=== PATIENT | male | born 1975 | race Caucasian/White ===

== ENCOUNTER 2016-08-17 15:23 | Emergency (ER) | payer OTHER ==
[2016-08-17 15:45] VITALS: BP 150/111
[2016-08-17] MEDS ORDERED: NAPROXEN SODIUM 550 MG TABLET PO ONE (16:46)
[2016-08-17] MEDS ORDERED: NAPROXEN SODIUM 550 MG TABLET ONE (16:50)
--- OUTSIDE RECORDS SUMMARY | 2016-08-17 16:55 | XMS REPORT | Continuity of Care Document ---
:1975 Author Organization [facility] ([facility]) [place] [address] Phone [phone] Care Team Providers Name Role Phone Odell Acevedo Primary Care Provider [phone] Source Comments This disclosure is being made pursuant to the Care Everywhere program, applicable federal and state laws, and may not contain all informaitonavailable regarding this patient.[facility] ([facility]) Active Allergies and Adverse Reactions Not on File Current Medications Not on file Active Problems Not on file Most Recent Encounters Date Type Specialty Providers Description 08/07/2016 Office Visit Orthopaedic Bubba Chavez MD Chief Comp: Patient Reported Reason For Visit 08/04/2016 Telephone Orthopaedic Bubba Chavez MD Chief Comp: Other Social History Tobacco Use Types Packs/Day Years Used Date Never Assessed Plan of Care Date Type Specialty Providers Description 09/08/2016 Appointment Orthopaedic Bubba Chavez MD Chief Comp: Patient [address] [place] [address] [phone] (Fax) Health Maintenance Due Date Last Done Comments Hepatitis B Vaccine (1 of 3 - Primary Series) 1975 Tdap Vaccine 1984 Lipid Disorder Screening 1991 MMR Vaccine 1991 Td Vaccine 1991 Influenza Vaccine: Seasonal (#1) 01/13/2016 Results from Last 3 Months Not on file
--- NOTE | 2016-08-17 16:59 | ERNOTE ---
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 No significant pain at rest but with any little movement, no other associated symptoms Date (Duration): 08/15/16 Timing: intermittent Modifying Factors - (Improves): Present: rest Modifying Factors - (Worsens): Present: movement Review of Systems - Review of Systems Constitutional: Absent: fever, chills ENT: Absent: nose congestion, sore throat Respiratory: Absent: shortness of breath, cough Cardiology: Absent: chest pain Gastrointestinal/Abdominal: Absent: nausea, vomiting, abdominal pain Genitourinary: Present: no symptoms reported Musculoskeletal: Present: See HPI, muscle pain. Absent: back pain Skin: Absent: rash Neurological: Absent: weakness, numbness - Patient's Past Medical History Patient History - Medical: No pertinent hx Patient History - Cardiac/Respiratory: No pertinent hx Patient History - Cancer: No Hx of Cancer Patient History - Surgical Procedures: No surgical history Patient History - Other: None - Social History Living Situations: home Abuse History: No History of abuse Psych History: No pertinent hx Smoking Status: Never smoker Alcohol Use: none Drug Use: none - Immunizations Immunizations Up to Date: Yes Hx Pneumococcal Vaccination: No History of Influenza Vaccine: No Physical Exam - Physical Exam General Appearance: Present: wd/wn, alert, no apparent distress, mild distress - with movement Respiratory: Present: no respiratory distress, normal breath sounds, no accessory muscle use, chest nontender, lungs clear Cardiovascular/Chest: Present: regular rate, rhythm, no murmur Gastrointestinal/Abdominal: Present: normal bowel sounds, nontender - abdomen, nondistended, soft, tenderness - left lowest rib to ileac crest tender muscle Back Exam: Present: normal inspection, normal range of motion, no CVA tenderness , no vertebral tenderness Neurological Exam: Present: alert, oriented, normal mood/affect Skin Exam: Present: normal color, warm/dry ED Progress - Vital Signs Patient's Vital Signs:: I have reviewed the patient's vital signs. Vital Signs: Vital Signs 08/17/16 15:42 Temperature 36.7 C Pulse Rate 63 Respiratory 16 Rate Blood Pressure 150/111 - Progress/Reassessment Chief Complaint: General Assessment Departure - Departure Clinical Impression: Musculoskeletal pain Disposition: Home self-care Condition: Good Instructions: Musculoskeletal Pain Additional Instructions: follow up in the occupational health clinic Prescriptions: Naproxen [Naprosyn] 500 mg PO BID #40 tablet
== END 2016-08-17 17:05 | disposition home or self-care (01) ==
LOC: ER 15:23
DX: R10.9 Unspecified abdominal pain (principal); X58.XXXA Exposure to other specified factors, initial encounter; Y93.E5 Activity, floor mopping and cleaning; Y92.63 Factory as the place of occurrence of the external cause; Y99.0 Civilian activity done for income or pay